=== PATIENT | female | born 1965 | race Caucasian/White ===

== ENCOUNTER 2016-08-31 17:07 | Emergency (ER) | payer BC ==
--- NOTE | 2016-08-31 17:22 | PDOC ---
History of Present Illness - General History Source: Patient Exam Limitations: No Limitations - History of Present Illness Initial Comments: 08/31/16 18:03 The patient is a 50 year old female, with a significant past medical history of CA s/p stent (about 20 years ago), diabetes, and carpal tunnel syndrome who presents to the emergency department with left side chest pain and lightheadedness for the past 5-10 minutes prior to arriving at the ER. She describes the chest pain as a tingling sensation and non-radiating localized on her left side, ranking her pain a 7/10 in pain intensity. She reports chest pain had a sudden onset, occurring when she was driving. She states having a tingling sensation in her chest along with sensations of LOC. She reports having a steroid injection 3 and half hours ago into her wrist today for carpal tunnel syndrome. She denies these symptoms being similar to her previous CA. She denies recent fevers, chills, headache or dizziness. She denies recent shortness of breath. Allergies: levofloxacin Past surgical history: See HPI. Hysterectomy. Social history: Former smoker (last episode 1996). Denies EtOH and drug use. <Aly Cruz - Last Filed: 08/31/16 18:04> <Briana Boudreaux - Last Filed: 09/07/16 08:24> - General Chief Complaint: Chest Pain Stated Complaint: CHEST PAIN Time Seen by Provider: 08/31/16 17:20 Past History <Aly Cruz - Last Filed: 08/31/16 18:04> <Briana Boudreaux - Last Filed: 09/07/16 08:24> - Past Medical History Allergies/Adverse Reactions: Allergies Allergy/AdvReac Type Severity Reaction Status Date / Time levofloxacin [From Levaquin] Allergy Verified 08/31/16 17:14 Home Medications: Ambulatory Orders Aspirin [ASA -] 81 mg PO DAILY 08/31/16 Dapagliflozin Propanediol [Farxiga] 10 mg PO DAILY 08/31/16 Fenofibrate [Lofibra] 160 mg PO DAILY 08/31/16 Gabapentin 300 mg PO BID 08/31/16 Iron 65 mg PO DAILY 08/31/16 Levomefolate/B6/B12/Algal Oil [Metanx Capsule] 2 each PO DAILY 08/31/16 Metformin HCl [Metformin HCl ER] 1,500 mg PO BID 08/31/16 Ramipril 10 mg PO DAILY 08/31/16 Review of Systems - Review of Systems Able to Perform ROS?: Yes Comments:: 08/31/16 18:00 GENERAL/CONSTITUTIONAL: +lightheadedness. No fever or chills. No weakness. HEAD, EYES, EARS, NOSE AND THROAT: No change in vision. No ear pain or discharge. No sore throat. CARDIOVASCULAR: +chest pain No shortness of breath. RESPIRATORY: No cough, wheezing, or hemoptysis. GASTROINTESTINAL: No nausea, vomiting, diarrhea or constipation. GENITOURINARY: No dysuria, frequency, or change in urination. MUSCULOSKELETAL: No joint or muscle swelling or pain. No neck or back pain. SKIN: No rash NEUROLOGIC: No headache, vertigo, loss of consciousness, or change in strength/ sensation. ENDOCRINE: No increased thirst. No abnormal weight change. HEMATOLOGIC/LYMPHATIC: No anemia, easy bleeding, or history of blood clots. ALLERGIC/IMMUNOLOGIC: No hives or skin allergy. <Aly Cruz - Last Filed: 08/31/16 18:04> *Physical Exam - Vital Signs Last Vital Signs Temp Pulse Resp BP Pulse Ox 98.1 F 89 20 181/91 98 08/31/16 17:08 08/31/16 17:08 08/31/16 17:08 08/31/16 17:08 08/31/16 17:08 - Physical Exam Comments: 08/31/16 18:04 GENERAL: Awake, alert, and fully oriented, in no acute distress HEAD: No signs of trauma EYES: PERRLA, EOMI, sclera anicteric, conjunctiva clear ENT: Auricles normal inspection, hearing grossly normal, nares patent, oropharynx clear without exudates. Moist mucosa NECK: Normal ROM, supple, no lymphadenopathy, JVD, or masses LUNGS: Breath sounds equal, clear to auscultation bilaterally. No wheezes, and no crackles HEART: Regular rate and rhythm, normal S1 and S2, no murmurs, rubs or gallops ABDOMEN: Soft, nontender, normoactive bowel sounds. No guarding, no rebound. No masses EXTREMITIES: LEFT WRIST: Splint in place. Normal range of motion, no edema. No clubbing or cyanosis. No cords, erythema, or tenderness NEUROLOGICAL: Cranial nerves II through XII grossly intact. Normal speech, normal gait SKIN: Warm, Dry, normal turgor, no rashes or lesions noted. <Aly Cruz - Last Filed: 08/31/16 18:04> ED Treatment Course - LABORATORY CBC & Chemistry Diagram: 08/31/16 17:38 08/31/16 17:38 <Briana Boudreaux - Last Filed: 09/07/16 08:24> Medical Decision Making - Medical Decision Making Symptoms are very atypical for CA. I suspect that this is more related to receiving local anesthetic for the procedure- if it contained epinephrine, that would certainly cause some cardiac symptoms. Her symptoms had resolved prior to ED arrival. No acute findings on EKG. Labs wnl. Stable for DC home. <Briana Boudreaux - Last Filed: 09/07/16 08:24> *DC/Admit/Observation/Transfer - Attestations Scribe Attestion: 08/31/16 18:00 Documentation prepared by Aly Cruz, acting as medical cash poster for Briana Boudreaux MD. <Aly Cruz - Last Filed: 08/31/16 18:04> - Discharge Dispostion Admit: No <Briana Boudreaux - Last Filed: 09/07/16 08:24> Diagnosis at time of Disposition: Paresthesias - Discharge Dispostion Disposition: HOME Condition at time of disposition: Stable - Patient Instructions Printed Discharge Instructions: DI for Regional Anesthesia, DI for Numbness/ tingling
[2016-08-31 17:35] VITALS: BP 181/91; PULSE 89; TEMP 98.1; BMI 28.3
[2016-08-31 18:15] LABS: BASOPHIL 0.3 % (0-2.0); EOSINOPHIL 8.6 % (0-4.5); MCH 28.3 pg (25.7-33.7); MCHC 32.4 g/dl (32.0-36.0); MEAN CELL VOLUME 87.3 fl (80-96); MEAN PLT VOLUME 8.1 fl (7.5-11.1); NEUTROPHILS 59.2 % (42.8-82.8); PLATELET COUNT 294 K/MM3 (134-434); RDW 12.6 % (11.6-15.6); WHITE BLOOD COUNT 7.1 K/mm3 (4.0-10.0)
[2016-08-31 18:24] LABS: INR 1.05 (0.82-1.09); PROTHROMBIN TIME (PATIENT) 11.7 SEC (10.2-13.0)
[2016-08-31 18:32] LABS: CPK(DFH) 83 IU/L (26-140)
[2016-08-31 18:33] LABS: ALBUMIN 4.7 g/dl (3.5-5.0); ALK PHOS 65 U/L (32-92); ANION GAP 11 (8-16); CALCIUM 10.2 mg/dl (8.4-10.2); CO2 26 mmol/L (22-28); CREATININE 0.6 mg/dl (0.6-1.3); GLUCOSE,RANDOM 260 mg/dl (74-106); SGOT/AST 29 U/L (10-42); SGPT/ALT 42 U/L (10-40); TOT PROT 7.2 g/dl (6.4-8.3)
[2016-08-31 18:51] LABS: TROPONIN I (DFP) < 0.03 ng/ml (0.03-0.50)
[2016-08-31 19:13] LABS: BILIRUBIN,TOTAL < 0.3 mg/dl (0.2-1.0)
--- NOTE | 2016-09-01 10:11 | EKG ---
Test Reason : Blood Pressure : / mmHG Vent. Rate : 093 BPM Atrial Rate : 093 BPM P-R Int : 128 ms QRS Dur : 096 ms QT Int : 378 ms P-R-T Axes : 028 -50 -08 degrees QTc Int : 469 ms SINUS RHYTHM LEFTWARD AXIS CANNOT RULE OUT INFERIOR INFARCT , AGE UNDETERMINED ABNORMAL ECG NO PREVIOUS ECGS AVAILABLE Confirmed by OFE GARG MD ([id number]) on 09/01/2016 10:11:24 AM Referred By: MD VALE Confirmed By:OFE GARG MD
== END 2016-08-31 19:26 | disposition home or self-care (01) ==
LOC: FER 17:07
DX: R20.2 Paresthesia of skin (principal); I25.2 Old myocardial infarction; Z95.5 Presence of coronary angioplasty implant and graft; E11.9 Type 2 diabetes mellitus without complications; G56.00 Carpal tunnel syndrome, unspecified upper limb; Z79.82 Long term (current) use of aspirin
CPT/HCPCS: 36415; 71010-TC; 80053; 82550; 84484; 85025; 85610; 93005; 99283-25

== ENCOUNTER → 2016-10-18 | Emergency (ER) | payer BC ==
[2016-10-18 03:19] VITALS: BMI 27.4
--- NOTE | 2016-10-18 03:52 | PDOC ---
History of Present Illness - General Chief Complaint: Chest Pain Stated Complaint: CHEST PAIN History Source: Patient Exam Limitations: No Limitations - History of Present Illness Presenting Symptoms: Chest Pain, Short of Breath Timing/Duration: reports: intermittent Past History - Travel Traveled outside of the country in the last 30 days: No Close contact w/someone who was outside of country & ill: No - Past Medical History Allergies/Adverse Reactions: Allergies Allergy/AdvReac Type Severity Reaction Status Date / Time levofloxacin [From Levaquin] Allergy Verified 10/18/16 04:21 Home Medications: Ambulatory Orders Aspirin [ASA -] 81 mg PO DAILY 08/31/16 Dapagliflozin Propanediol [Farxiga] 10 mg PO DAILY 08/31/16 Fenofibrate [Lofibra] 160 mg PO DAILY 08/31/16 Gabapentin 300 mg PO BID 08/31/16 Iron 65 mg PO DAILY 08/31/16 Levomefolate/B6/B12/Algal Oil [Metanx Capsule] 2 each PO DAILY 08/31/16 Metformin HCl [Metformin HCl ER] 1 gm PO BID 08/31/16 Ramipril 10 mg PO DAILY 08/31/16 Cardiac Disorders: Yes Diabetes: Yes HTN: Yes - Psycho/Social/Smoking Cessation Hx Anxiety: No Suicidal Ideation: No Smoking History: Unknown if ever smoked Have you smoked in the past 12 months: No If you are a former smoker, when did you quit?: 1996 Hx Alcohol Use: No Drug/Substance Use Hx: No Substance Use Type: None Review of Systems - Review of Systems Able to Perform ROS?: Yes Comments:: 10/18/16 05:14 CONSTITUTIONAL: Absent: fever, chills, diaphoresis, generalized weakness, malaise, loss of appetite HEENT: Absent: rhinorrhea, nasal congestion, throat pain, throat swelling, difficulty swallowing, mouth swelling, ear pain, eye pain, visual Changes CARDIOVASCULAR: +chest pain Absent: loss of consciousness, palpitations, irregular heart rate, peripheral edema RESPIRATORY: +shortness of breath Absent: cough, dyspnea with exertion, orthopnea, wheezing, stridor, hemoptysis GASTROINTESTINAL: Absent: abdominal pain, abdominal distension, nausea, vomiting, diarrhea, constipation, melena, hematochezia GENITOURINARY: Absent: dysuria, frequency, urgency, hesitancy, hematuria, flank pain, genital pain MUSCULOSKELETAL: Absent: myalgia, arthralgia, joint swelling SKIN: Absent: rash, itching, pallor HEMATOLOGIC/IMMUNOLOGIC: Absent: easy bleeding, easy bruising, lymphadenopathy, frequent infections ENDOCRINE: Absent: unexplained weight gain, unexplained weight loss, heat intolerance, cold intolerance NEUROLOGIC: Absent: headache, focal weakness or paresthesias, dizziness, unsteady gait, seizure, mental status changes, bladder or bowel incontinence PSYCHIATRIC: Absent: anxiety, depression, suicidal or homicidal ideation, hallucinations. Is the patient limited Honduran proficient: No *Physical Exam - Vital Signs Last Vital Signs Temp Pulse Resp BP Pulse Ox 97.6 F 80 18 144/78 95 10/18/16 11:45 10/18/16 11:45 10/18/16 11:45 10/18/16 11:45 10/18/16 11:45 - Physical Exam Comments: 10/18/16 05:15 GENERAL: Well developed, well nourished. Awake and alert. No acute distress. HEENT: Normocephalic, atraumatic. PERRLA, EOMI. No conjunctival pallor. Sclera are non- icteric. Moist mucous membranes. Oropharynx is clear. NECK: Supple. Full ROM. No JVD. Carotid pulses 2+ and symmetric, without bruits. No thyromegaly. No lymphadenopathy. CARDIOVASCULAR: Regular rate and rhythm. No murmurs, rubs, or gallops. Distal pulses are 2+ and symmetric. PULMONARY: No evidence of respiratory distress. Lungs clear to auscultation bilaterally. No wheezing, rales or rhonchi. ABDOMINAL: Soft. Non-tender. Non-distended. No rebound or guarding. No organomegaly. Normoactive bowel sounds. MUSCULOSKELETAL Normal range of motion at all joints. No bony deformities or tenderness. No CVA tenderness. EXTREMITIES: No cyanosis. No clubbing. No edema. No calf tenderness. SKIN: Warm and dry. Normal capillary refill. No rashes. No jaundice. NEUROLOGICAL: Alert, awake, appropriate. Cranial nerves 2-12 intact. No deficits to light touch and temperature in face, upper extremities and lower extremities. No motor deficits in the in face, upper extremities and lower extremities. Normoreflexic in the upper and lower extremities. Normal speech. Toes are down- going bilaterally. Gait is normal without ataxia. PSYCHIATRIC: Cooperative. Good eye contact. Appropriate mood and affect. 10/18/16 05:15 51-year-old female with a past medical history significant for an NH 15 years ago and diabetes type 2 presents to the emergency department complaining of mid substernal 5/10 tugging sensation nonradiating chest pain without nausea/ vomiting, fever/chills/diarrhea, headaches, dizziness, lightheadedness, neck pains, back pains, abdominal pains, urinary symptoms, extremity numbness or tingling sensation. Patient states she was sitting on her chair prying when the pain came on acutely. There are no exacerbating or alleviating factors. 10/18/16 07:01 Signed out to SAPPHIRE Bates check 2nd set of Troponin ED Treatment Course - LABORATORY CBC & Chemistry Diagram: 10/18/16 04:00 10/18/16 04:00 - ADDITIONAL ORDERS Additional order review: 10/18/16 04:00 RBC 5.22 H MCV 86.8 MCHC 33.5 RDW 13.8 MPV 8.2 Neutrophils % 56.9 Lymphocytes % 26.0 Monocytes % 7.2 Eosinophils % 9.1 H Basophils % 0.8 - RADIOLOGY Radiology Studies Ordered: Category Date Time Status CHEST PA & LAT [RAD] Stat Radiology 10/18/16 03:52 Completed *DC/Admit/Observation/Transfer Diagnosis at time of Disposition: Chest pain - Discharge Dispostion Disposition: HOME Condition at time of disposition: Good - Referrals Referrals: Toby Trejo MD [Staff Physician] - (Call today) - Patient Instructions Printed Discharge Instructions: DI for Atypical Chest Pain, DI for Chest Pain Additional Instructions: Discharge instructions: -Please follow up with your own [facility] Spl[facility] or Dr. Trejo as soon as possible -Return to the ER immediately with any worsening or concerning symptoms.
[2016-10-18 04:06] LABS: BASOPHIL 0.8 % (0-2.0); EOSINOPHIL 9.1 % (0-4.5); MCH 29.1 pg (25.7-33.7); MCHC 33.5 g/dl (32.0-36.0); MEAN CELL VOLUME 86.8 fl (80-96); MEAN PLT VOLUME 8.2 fl (7.5-11.1); NEUTROPHILS 56.9 % (42.8-82.8); PLATELET COUNT 262 K/MM3 (134-434); RDW 13.8 % (11.6-15.6); WHITE BLOOD COUNT 8.9 K/mm3 (4.0-10.0)
--- NOTE | 2016-10-18 04:39 | PDOC ---
*Physical Exam - Vital Signs Last Vital Signs Temp Pulse Resp BP Pulse Ox 98.6 F 69 18 153/81 98 10/18/16 03:17 10/18/16 03:17 10/18/16 03:17 10/18/16 03:17 10/18/16 03:17 ED Treatment Course - LABORATORY CBC & Chemistry Diagram: 10/18/16 04:00 10/18/16 04:00 - ADDITIONAL ORDERS Additional order review: 10/18/16 04:00 RBC 5.22 H MCV 86.8 MCHC 33.5 RDW 13.8 MPV 8.2 Neutrophils % 56.9 Lymphocytes % 26.0 Monocytes % 7.2 Eosinophils % 9.1 H Basophils % 0.8 Medical Decision Making - Medical Decision Making 10/18/16 04:38 agree with care from SAPPHIRE Cerda *DC/Admit/Observation/Transfer Diagnosis at time of Disposition: Chest pain - Discharge Dispostion Disposition: HOME Condition at time of disposition: Good - Referrals Referrals: Toby Trejo MD [Staff Physician] - (Call today) - Patient Instructions Printed Discharge Instructions: DI for Atypical Chest Pain, DI for Chest Pain Additional Instructions: Discharge instructions: -Please follow up with your own [facility] [employer] [facility] or Dr. Trejo as soon as possible -Return to the ER immediately with any worsening or concerning symptoms.
[2016-10-18 05:10] LABS: ALBUMIN 4.6 g/dl (3.4-5.0); ANION GAP 13 (8-16); BILIRUBIN,TOTAL 0.4 mg/dL (0.2-1.0); CALCIUM 10.1 mg/dL (8.5-10.1); CO2 26 mmol/L (21-32); CREATININE 0.8 mg/dL (0.55-1.02); GLUCOSE,RANDOM 119 mg/dL (74-106); SGOT/AST 24 U/L (15-37); SGPT/ALT 50 U/L (12-78); TOT PROT 7.3 g/dl (6.4-8.2)
[2016-10-18 05:13] LABS: ALK PHOS 83 U/L (45-117); TROPONIN I < 0.02 ng/ml (0.00-0.05)
--- NOTE | 2016-10-18 07:15 | PDOC ---
ED Treatment Course - LABORATORY CBC & Chemistry Diagram: 10/18/16 04:00 10/18/16 04:00 - ADDITIONAL ORDERS Additional order review: Laboratory Results 10/18/16 04:00 Sodium 142 Potassium 3.8 Chloride 103 Carbon Dioxide 26 Anion Gap 13 BUN 19 H Creatinine 0.8 Creat Clearance w eGFR > 60 Random Glucose 119 H Calcium 10.1 Total Bilirubin 0.4 AST 24 ALT 50 Alkaline Phosphatase 83 Creatine Kinase 88 Troponin I < 0.02 Total Protein 7.3 Albumin 4.6 10/18/16 04:00 RBC 5.22 H MCV 86.8 MCHC 33.5 RDW 13.8 MPV 8.2 Neutrophils % 56.9 Lymphocytes % 26.0 Monocytes % 7.2 Eosinophils % 9.1 H Basophils % 0.8 Progress Note - Progress Note Progress Note: I have received report from SAPPHIRE Cerda regarding this patient. Pt's initial chief complaint: mid substernal chest pain Pt's work up completed prior to sign out: EKG, labs, CXR Pt treatment given from prior staff: none Pt plan to be completed: Awaiting 2nd troponin Dispo: Pending Medical Decision Making - Medical Decision Making A/P: 51 y/o afebrile female with PMH MT x 15 years ago and DM2 came in c/o chest pain. The patient was initially evaluated by SAPPHIRE Cerda. EKG, CXR and initial labs normal. Waiting for 2nd troponin at 10am. If negative, will discharge to home with S[facility] C[facility] referral. 2nd trop negative Will discharge to home. The patient continues to deny chest pain. Instructed her to f/u with either her own Sole Cutter or referred Dr. Trejo as soon as possible and return to the ER with any worsening or concerning symptoms. The patient verbalizes understanding of all instructions, has no further questions and is awaiting discharge. *DC/Admit/Observation/Transfer Diagnosis at time of Disposition: Chest pain Qualifiers: Chest pain type: unspecified Qualified Code(s): R07.9 - Chest pain, unspecified - Discharge Dispostion Disposition: HOME Condition at time of disposition: Good - Referrals Referrals: Toby Trejo MD [Staff Physician] - (Call today) - Patient Instructions Printed Discharge Instructions: DI for Atypical Chest Pain, DI for Chest Pain Additional Instructions: Discharge instructions: -Please follow up with your own Sole Cutter or Dr. Trejo as soon as possible -Return to the ER immediately with any worsening or concerning symptoms.
[2016-10-18 10:47] LABS: TROPONIN I < 0.02 ng/ml (0.00-0.05)
[2016-10-18 11:46] VITALS: BP 144/78; PULSE 80; TEMP 97.6
--- NOTE | 2016-10-18 13:27 | EKG ---
Test Reason : Blood Pressure : / mmHG Vent. Rate : 066 BPM Atrial Rate : 066 BPM P-R Int : 164 ms QRS Dur : 114 ms QT Int : 406 ms P-R-T Axes : 046 -38 -10 degrees QTc Int : 425 ms NORMAL SINUS RHYTHM LEFT AXIS DEVIATION INFERIOR-POSTERIOR INFARCT (CITED ON OR BEFORE 31-AUG-2016) ABNORMAL ECG WHEN COMPARED WITH ECG OF 31-AUG-2016 17:20, NO SIGNIFICANT CHANGE WAS FOUND Confirmed by CHARLES NICE MD ([id number]) on 10/18/2016 1:26:28 PM Referred By: Confirmed By:CHARLES NICE MD
== END | disposition home or self-care (01) ==
LOC: JER 03:00
DX: R07.89 Other chest pain (principal); I25.2 Old myocardial infarction; I10 Essential (primary) hypertension; E11.9 Type 2 diabetes mellitus without complications; Z79.84 Long term (current) use of oral hypoglycemic drugs
CPT/HCPCS: 36415; 71020-TC; 80053; 82550; 84484; 85025; 93005; 93010; 99285-25